=== PATIENT | female | born 1940 | race Caucasian/White ===

== ENCOUNTER 2019-02-02 10:08 | Outpatient (CLI) | payer OTHER ==
[~2019-02-02] VITALS: Ht 157.5 cm; Wt 69.9 kg
[~2019-02-02 10:08] MED LIST: AFEDITAB CR30 MG PO; CHILDREN'S ASPI81 M1 PO; CLONIDINE0.1 PO; COREG25 MG PO; HYDROCHLOROTH12.5 M2 PO; NORVASC5 MG PO; PRINIVIL20 MG PO; VISTARIL 25 MG25 M1 PO; ZANTAC 150MG T150 M1 PO
[2019-02-02 10:38] VITALS: BP 220/78
[2019-02-02] MEDS ORDERED: COZAAR 25 MG TA25 M1 PO (10:46)
[2019-02-02 10:55] LABS: HEMATOCRIT 40.4 % (37.0-47.0); HEMOGLOBIN 13.4 gm/dL (12.0-15.0); MCHC 33.2 g/dL (28.0-37.0); MCV 90.4 fL (80.0-100.0); PLATELET COUNT 225 thou/uL (150-400); RBC 4.47 mil/uL (4.20-5.00); RDW 14.5 % (10.5-14.5); WBC 6.4 thou/uL (4.0-11.0)
[2019-02-02 11:11] LABS: APTT 27.5 Seconds (24.5-32.8); INR 1.1; PROTIME 11.2 Seconds (9.3-11.4)
[2019-02-02 11:14] LABS: CALCIUM 9.4 mg/dL (8.5-10.1); POTASSIUM 4.1 mmol/L (3.5-5.1)
[2019-02-02 11:19] LABS: TOTAL BILIRUBIN 1.1 mg/dL (<0.1-1.0); TOTAL PROTEIN 7.7 g/dL (6.4-8.2)
[2019-02-02 11:42] LABS: ABSOLUTE NEUTROPHILS 4.6 thou/uL (1.4-8.2); ATYPICAL LYMPHS 2 %
[2019-02-02 17:00] VITALS: BP 173/47
--- NOTE | 2019-02-02 18:08 | NUR ---
PT TO THE UNIT POST PACER PLACEMENT. PT ORIENTED TO ROOM AND BEDSPACE. PT BP HAS BEEN ELEVATED SINCE ARRIVAL TO UNIT WILL CONTINUE TO MONITOR AND GIVEN [place] IF REMAINS ELEVATED - DEENA DIET AND FLUIDS. L ARM IN IMMOBILIZER. INCISION C/D/I. NO CO'S OF PAIN OR NAUSEA - STATES COMFORTABLE AT THE PRESENT TIME.
[2019-02-02 19:34] VITALS: BP 142/38
[2019-02-02 23:45] VITALS: BP 177/55
--- NOTE | 2019-02-03 01:31 | NUR ---
ASSESSMENTS CHARTED. PATIENT URINATING FREQUENTLY POST PROCEDURE, USING BEDPAN. BLADDER SCANNED AFTER LAST VOID AND SHE HAD 266 ML RESIDUAL. ELEVATED BLOOD PRESSURE CALLED TO DR ARREDONDO WHO GAVE ORDER TO START AMLODIPINE NOW INSTEAD OF AT 2100 TONIGHT. PATIENT DENIES PAIN. PLAN IS FOR PACEMAKER TO BE INTERREGATED IN AM THEN HOME.
[2019-02-03 03:38] VITALS: BP 169/49
[2019-02-03 07:20] VITALS: BP 163/42
[2019-02-03 11:30] VITALS: BP 158/56
[2019-02-03 13:49] VITALS: BP 158/56
[2019-02-03 14:01] VITALS: BP 158/56
--- NOTE | 2019-02-03 14:43 | NUR ---
ASSESSMENT CHARTED - MEDS PER RAMANDEEP SHAFFER DIET AND FLUIDS. UP IN THE CHAIR - AMBULATING TO THE BATHROOM - STEADY ON FEET. NO CO'S OF PAIN OR NAUSEA. PT HOME THIS AFTERNOON AFTER BEING SEEN BY DOCTOR - INSTRUCTION RE HOME MEDS/ CARE AND FOLLOW GIVEN - STATED UNDERSTANDING OF INSTRUCTION GIVEN. MONITOR AND IV 'S D/C'D PRIOR TO D/C. LEFT UNIT VIA WHEELCHAIR - HOME VIA PVT VEHICLE ACCOMANIED BY - NO CO'S AT TIME OF D/C.
--- NOTE | 2019-02-05 14:16 | P ---
[facility] [place] [address] PROCEDURE REPORT Name: WOODSONMARIANA E Room #: DEP SERENITY Boyd#: [id number] Admission: 02/02/19 ������������������ Attend Phys: Demian Addison MD Discharge: 02/03/19 ������������������ Date of : 44 Report #: [id number] THIS REPORT FOR: //name// CC: Astrid Addison PREOPERATIVE DIAGNOSIS: Sick sinus syndrome. POSTOPERATIVE DIAGNOSIS: Sick sinus syndrome. HISTORY: The patient is a 78-year-old female with a history of symptomatic bradycardia secondary to sick sinus syndrome who is here for dual chamber pacemaker implantation. ANESTHESIA: The patient underwent MAC anesthesia with no anesthesia related complications. DESCRIPTION OF PROCEDURE: The patient underwent informed consent. We discussed the details of the procedure including the risks, which include but not limited to bleeding, infection, vascular damage, cardiac perforation, pneumothorax. She understood these risks and is willing to proceed. The patient was brought to the EP laboratory in a fasting and sedated state and prepped and draped in a sterile fashion. She received IV Ancef for antibiotics prophylaxis and underwent venography showing patency of left axillary vein. Next, lidocaine was injected below the level of left clavicle. Incision was made. A pocket was created over to the prepectoral fascia and access was obtained twice to left axillary vein using the extrathoracic approach. Sheaths were positioned using the modified Seldinger technique. Next, a lead was positioned into the right ventricular mid septum and an atrial lead was positioned in the right atrial appendage both with adequate pacing and sensing thresholds. Leads were sutured to the prepectoral fashion. The device was connected to leads, tested and found to be functioning normally. The pocket was irrigated with vancomycin. The pocket was closed in 2 layers using 2-0 for the deep layer, 3-0 for the middle layer, surgical glue was placed to the outer skin layer. The patient awoke neurologically and hemodynamically intact. No complications and no significant bleeding. The implanted pacemaker was a Medtronic model #[id number]. The atrial lead was a Medtronic model #5076, 45 cm, serial #[id number] with a P-wave of 1.8 millivolts, pacing impedance 564 ohms and a pacing threshold 0.9 volts at 0.5 milliseconds. The RV lead was a Medtronic model #5076, 52 cm, serial #[id number] with a R-wave of 12 millivolts, pacing impedance of 753 ohms, pacing threshold of 0.4 volts at 0.5 milliseconds. The device was programmed to the AAIRDDDR 60-130 mode. CONCLUSIONS: [facility] [address] [place] [address] PROCEDURE REPORT Name: MARIANA WOODSON Room #: DEP SERENITY Boyd#: [id number] Admission: 02/02/19 ������������������ Attend Phys: Demian Addison MD Discharge: 02/03/19 ������������������ Date of : 44 Report #: [id number] 1. Successful dual-chamber MRI compatible pacemaker implantation. 2. Satisfactory atrial and ventricular pacing and sensing thresholds. ��������������������������������������������� <ELECTRONICALLY SIGNED> ���������������������������������������� By: Demian Addison MD ��������������������������������������������� 02/05/19 1416 1545 0057 Demian Addison MD /nt
== END 2019-02-03 14:41 | disposition home or self-care (01) ==
LOC: CATH 10:08 → 2N 17:01 → CATH 02-03 14:41
PROVIDERS: Internal Medicine Cardiovascular Disease
DX: I49.5 Sick sinus syndrome (principal); I12.9 Hypertensive chronic kidney disease with stage 1 through stage 4 chronic kidney disease, or unspecified chronic kidney disease; N18.9 Chronic kidney disease, unspecified; M19.90 Unspecified osteoarthritis, unspecified site; Z90.49 Acquired absence of other specified parts of digestive tract; Z79.899 Other long term (current) drug therapy; Z90.710 Acquired absence of both cervix and uterus; Z79.82 Long term (current) use of aspirin; Z98.890 Other specified postprocedural states
CPT/HCPCS: 10081; 62110; 62900; 70005